=== PATIENT | female | born 1995 ===

== ENCOUNTER 2019-03-05 15:24 | Emergency (ER) | payer MEDICAID ==
[~2019-03-05] VITALS: Ht 172.7 cm; Wt 122.0 kg
[2019-03-05 15:28] VITALS: BP 124/82
[2019-03-05] MEDS ORDERED: HYDROcodone/APAP 5/325 TABLET PO ONE (16:30)
[2019-03-05] MEDS ORDERED: PLEASE ENTER ALLERGIES MC SCH (16:30)
--- NOTE | 2019-03-05 16:30 | NUR ---
SPLINT APPLIED BY [facility] SOLUTION ARCHITECT. PLAN TO DC
[2019-03-05] MEDS ORDERED: HYDROcodone/APAP 5/325 TABLET ONE (16:55)
--- NOTE | 2019-03-05 17:02 | NUR ---
PT GIVEN DISCHARGE INSTRUCTIONS, UNDESTANDING STATED, PIV REMOVED WITH TIP INTACT. PT GIVEN CRUTCHES ON DISCHARGE. PT IN CARE OF FAMILY, ALL BELONGINGS VERIFIED WITH PT ON DISCHARGE, PT ESCORTED TO CHECK OUT
== END 2019-03-05 17:14 | disposition other institution (70) ==
LOC: ED 17:08
DX: S93.402A Sprain of unspecified ligament of left ankle, initial encounter (principal); W01.0XXA Fall on same level from slipping, tripping and stumbling without subsequent striking against object, initial encounter; Y93.89 Activity, other specified; Y92.830 Public park as the place of occurrence of the external cause; Y99.8 Other external cause status
CPT/HCPCS: 99283